=== PATIENT | male | born 1945 | race Caucasian/White ===

== ENCOUNTER 2021-07-31 17:38 | Emergency (ER) | payer BC, MEDICARE ==
[2021-07-31 18:48] LABS: HEMOGLOBIN 15.5 gm/dl (14.0-17.5); RED BLOOD COUNT 4.63 M/UL (4.20-5.50); WHITE BLOOD COUNT 5.4 K/UL (4.5-11.0)
[2021-07-31 19:17] LABS: BUN/CREATININE RATIO 16 (0-10)
[2021-07-31] MEDS ORDERED: ZOFRAN ODT 4 MG4 MG PO (23:23)
[2021-07-31] MEDS ORDERED: TAMIFLU75 MG PO (23:23)
[2021-07-31] MEDS ORDERED: IBUPROFEN600 MG PO (23:23)
== END 2021-07-31 23:42 | disposition home or self-care (01) ==
LOC: ER1 17:38
PROVIDERS: Physician Assistant
DX: J10.1 Influenza due to other identified influenza virus with other respiratory manifestations (principal); K85.90 Acute pancreatitis without necrosis or infection, unspecified; I11.9 Hypertensive heart disease without heart failure; F17.210 Nicotine dependence, cigarettes, uncomplicated; Z91.048 Other nonmedicinal substance allergy status; Z20.822 Contact with and (suspected) exposure to COVID-19
CPT/HCPCS: 71045; 80053; 81001; 82550; 82553; 83690; 83735; 83880; 84439; 84443; 84484; 85025; 85652; 86140; 87081; 87086; 87880; 93005; 99285; U0002